=== PATIENT | male | born 1940 | race Caucasian/White ===

== ENCOUNTER 2017-12-04 08:11 | Day surgery (SDC) | payer MEDICARE, BC ==
[2017-12-04] MEDS ORDERED: Sodium Chloride 0.9% 1,000 ML IV SCH (09:00)
[2017-12-04] MEDS ORDERED: Propofol 200 MG/20 ML SDV ONE (09:21)
[2017-12-04] MEDS ORDERED: fentaNYL 100 MCG/2 ML SDV ONE (09:21)
[2017-12-04] MEDS ORDERED: Midazolam 1 MG/ML 2 ML SDV ONE (09:21)
--- NOTE | 2017-12-04 11:43 | OR ---
DATE OF PROCEDURE: 12/04/2017 PROCEDURE: Colonoscopy. FINDINGS: 1. Transverse colon polyp, approximately 5 mm, completely removed using cold biopsy forceps. 2. Very mild inflammation of ascending and rectum, biopsied using cold biopsy forceps. 3. Diverticulosis, mild. RISKS: Risks, benefits, alternatives, and limitations including, but not limited to infection, bleeding, and perforation were explained to the patient, who wished to proceed. PROCEDURE IN DETAIL: The patient was placed in supine position. The digital rectal exam was performed. The scope was introduced and advanced atraumatically to the ileocecal valve. The scope was brought back to the ascending, transverse, descending colon, and retroflexed. Very mild inflammation was noted and biopsied using cold biopsy forceps. The patient did have diverticulosis; however, there was only 3-4 tics noted. No abnormalities and retroflexed. The patient tolerated the procedure well. Obey Spencer MD /[id number]
== END 2017-12-04 11:45 | disposition home or self-care (01) ==
LOC: JP.SDS 08:11
PROVIDERS: ATTEND Surgery
DX: K52.9 Noninfective gastroenteritis and colitis, unspecified (principal); D12.3 Benign neoplasm of transverse colon; K57.30 Diverticulosis of large intestine without perforation or abscess without bleeding; I10 Essential (primary) hypertension; I48.2 Chronic atrial fibrillation; E78.5 Hyperlipidemia, unspecified; M10.9 Gout, unspecified; Z88.0 Allergy status to penicillin; Z88.8 Allergy status to other drugs, medicaments and biological substances
CPT/HCPCS: 45380; J2250; J2704; J3010; J7030; 88305

== ENCOUNTER 2018-07-16 09:36 | Emergency (ER) | payer MEDICARE, BC ==
[2018-07-16] MEDS ORDERED: HYDROmorphone 0.5 MG/0.5 ML Syringe IVPUSH ONE (10:10)
[2018-07-16] MEDS ORDERED: Sodium Chloride 0.9% 10 ML Syringe FLUSH PRN (10:10)
[2018-07-16] MEDS ORDERED: Ketorolac 30 MG/ML SDV IVPUSH ONE (10:10)
--- NOTE | 2018-07-16 10:17 | EDM.PDOC ---
ED HPI GENERAL MEDICAL PROBLEM - General Chief Complaint: Abdominal Pain Stated Complaint: BACK/ABD PAIN Time Seen by Provider: 07/16/18 10:00 Source of Information: Reports: Patient History Limitations: Reports: No Limitations - History of Present Illness INITIAL COMMENTS - FREE TEXT/NARRATIVE: 77-year-old male with significant left flank pain radiating around to the left lower abdomen over the past 2 days. He has a history of colitis, feels he needs to have a bowel movement but can't. No increased urinary frequency. No dysuria. He went into the clinic to be evaluated and they sent him to the emergency room. Denies any fever or chills, no cough or shortness of breath. No previous similar symptoms. Onset: Sudden (Symptoms started rather suddenly 2 days ago) Associated Symptoms: Denies: Confusion, Chest Pain, Cough Left Abdominal Pain Score (Numeric/FACES): 10 - Related Data Allergies Allergy/AdvReac Type Severity Reaction Status Date / Time Penicillins Allergy Rash Verified 07/16/18 09:59 terbinafine [From Lamisil] Allergy Rash Verified 07/16/18 09:59 Home Meds: Home Meds Allopurinol [Zyloprim] 300 mg PO DAILY 12/02/17 [History] Apixaban [Eliquis] 5 mg PO BID 12/02/17 [History] Cholecalciferol (Vitamin D3) [Vitamin D3] 2,000 unit PO DAILY 12/02/17 [History] Clotrimazole/Betamethasone Dip [Lotrisone Cream] 1 applic TOP BID 12/02/17 [ History] Lisinopril 40 mg PO BID 12/02/17 [History] Metoprolol Succinate [Toprol XL] 25 mg PO DAILY 12/02/17 [History] Multivitamin with Minerals [Multiple Vitamin] 1 tab PO DAILY 12/02/17 [History] Rosuvastatin Calcium 5 mg PO DAILY 12/02/17 [History] amLODIPine Besylate [Amlodipine Besylate] 10 mg PO DAILY 12/02/17 [History] Budesonide [Entocort EC] 1 cap PO ASDIRECTED 07/16/18 [History] Past Medical History HEENT History: Reports: Cataract, Impaired Vision Cardiovascular History: Reports: Afib, CAD, High Cholesterol, Hypertension Respiratory History: Reports: None Genitourinary History: Reports: BPH Musculoskeletal History: Reports: Arthritis, Back Pain, Chronic, Gout, Osteoarthritis Neurological History: Reports: None Psychiatric History: Reports: None Endocrine/Metabolic History: Reports: None Hematologic History: Reports: Blood Transfusion(s) Immunologic History: Reports: None Oncologic (Cancer) History: Reports: Prostate Dermatologic History: Reports: Other (See Below) Other Dermatologic History: rash-groin - Infectious Disease History Infectious Disease History: Reports: Chicken Pox, Herpes, Measles, Mumps, Pertussis (Whooping Cough) - Past Surgical History Head Surgeries/Procedures: Reports: None HEENT Surgical History: Reports: Cataract Surgery GI Surgical History: Reports: Colonoscopy, Hernia, Abdominal Male Surgical History: Reports: Prostatectomy Neurological Surgical History: Reports: Spinal Fusion Musculoskeletal Surgical History: Reports: Knee Replacement Dermatological Surgical History: Reports: Other (See Below) Social & Family History - Family History Family Medical History: Noncontributory - Tobacco Use Smoking Status *Q: Never Smoker - Caffeine Use Caffeine Use: Reports: Coffee - Recreational Drug Use Recreational Drug Use: No ED ROS GENERAL - Review of Systems Review Of Systems: See Below Constitutional: Denies: Fever, Chills Respiratory: Denies: Shortness of Breath, Cough Cardiovascular: Denies: Chest Pain, Palpitations Endocrine: Denies: Fatigue GI/Abdominal: Reports: Abdominal Pain, Nausea. Denies: Constipation, Diarrhea, Vomiting : Reports: Flank Pain Musculoskeletal: Reports: Back Pain Skin: Reports: No Symptoms Neurological: Denies: Headache, Paresthesia Psychiatric: Reports: No Symptoms ED EXAM, GENERAL - Physical Exam Exam: See Below Exam Limited By: No Limitations General Appearance: Alert, Mild Distress (Looks fairly uncomfortable, having trouble sitting still) Head: Atraumatic Respiratory/Chest: No Respiratory Distress, Lungs Clear GI/Abdominal: Soft, Tender (Just some mild tenderness to palpation along the left anterior abdomen) Neurological: Alert, Oriented Psychiatric: Anxious Skin Exam: Warm, Dry Course - Vital Signs Last Recorded V/S: Last Vital Signs Temp 98.0 F 07/16/18 09:58 Pulse 111 H 07/16/18 09:58 Resp 16 07/16/18 09:58 BP 166/89 H 07/16/18 09:58 Pulse Ox 96 07/16/18 09:58 - Orders/Labs/Meds Orders: Active Orders 24 hr Category Date Time Status Saline Lock Insert [OM.PC] Routine Oth 07/16/18 10:10 Ordered Labs: Laboratory Tests 07/16/18 07/16/18 07/16/18 Range/Units 10:09 10:24 10:24 WBC 9.0 (4.5-11.0) K/uL RBC 5.48 (4.30-5.90) M/uL Hgb 15.9 H (12.0-15.0) g/dL Hct 49.5 (40.0-54.0) % MCV 90 (80-98) fL MCH 29 (27-31) pg MCHC 32 (32-36) % Plt Count 228 (150-400) K/uL Neut % (Auto) 63 (36-66) % Lymph % (Auto) 27 (24-44) % [place] % (Auto) 8 H (2-6) % Eos % (Auto) 1 L (2-4) % Baso % (Auto) 0 (0-1) % Sodium 140 (140-148) mmol/L Potassium 3.7 (3.6-5.2) mmol/L Chloride 103 (100-108) mmol/L Carbon Dioxide 24 (21-32) mmol/L Anion Gap 12.6 (5.0-14.0) mmol/L BUN 11 (7-18) mg/dL Creatinine 1.0 (0.8-1.3) mg/dL Est Cr Clr Drug Dosing 69.64 mL/min Estimated GFR (MDRD) > 60 (>60) Glucose 107 H (74-106) mg/dL Calcium 9.7 (8.5-10.1) mg/dL Urine Color Yellow Urine Appearance Clear Urine pH 6.0 (4.5-8.0) Ur Specific [place] 1.015 (1.008-1.030) Urine Protein Negative (NEGATIVE) mg/dL Urine Glucose (UA) Normal (NEGATIVE) mg/dL Urine Ketones Negative (NEGATIVE) mg/dL Urine Occult Blood Negative (NEGATIVE) Urine Nitrite Negative (NEGAITVE) Urine Bilirubin Negative (NEGATIVE) Urine Urobilinogen Normal (NORMAL) mg/dL Ur Leukocyte Esterase Negative (NEGATIVE) Urine RBC Not seen (0-5) Urine WBC Not seen (0-5) Ur Epithelial Cells Not seen Amorphous Sediment Rare Urine Bacteria Not seen Urine Mucus Not seen Meds: Medications Discontinued Medications Generic Name Dose Route Start Last Admin Trade Name Freq PRN Reason Stop Dose Admin Hydromorphone HCl 0.5 mg 07/16/18 10:10 07/16/18 10:22 Dilaudid IVPUSH 07/16/18 10:11 0.5 mg ONETIME ONE Administration Ketorolac Tromethamine 30 mg 07/16/18 10:10 07/16/18 10:21 Toradol IVPUSH 07/16/18 10:11 30 mg ONETIME ONE Administration Sodium Chloride 10 ml 07/16/18 10:10 07/16/18 10:21 Saline Flush FLUSH 10 ml ASDIRECTED PRN Administration Keep Vein Open - Re-Assessments/Exams Free Text/Narrative Re-Assessment/Exam: 07/16/18 10:20 A UA was obtained, CBC BMP and a saline lock started. Patient was given 30 mg of IV Toradol and 0.5 mg of IV Dilaudid with intention of getting a CT scan of the abdomen and pelvis without contrast. 07/16/18 11:26 Patient received good pain relief with medications. UA, CBC and BMP were basically normal. CT was done. 07/16/18 11:48 CT showed no acute findings. No evidence of constipation or colitis. With all of his normal labs, it was assumed that this is probably neuropathy or nerve irritation from his arthritis in his back. He'll be discharged with 20 hydrocodone to use for extra pain control and will recheck in 3-4 days if not improving satisfactorily. IMPRESSION: 1. No acute disease in abdomen or pelvis. 2. Cholelithiasis. 3. Prostate surgically absent. 4. Moderate low-density lesion right midkidney posteriorly is not a simple cyst and should be correlated to ultrasound to ensure it does not contain solid elements or suspicious features. 5. Nodularity left adrenal gland likely an adenoma. 6. Mild panniculitis in the mesentery. 7. No renal or ureteral calculi. 8. Multiple other findings as above. Departure - Departure Time of Disposition: 11:59 Disposition: Home, Self-Care 01 Condition: Fair Clinical Impression: Back pain Qualifiers: Back pain location: low back pain Chronicity: acute Back pain laterality: left Sciatica presence: without sciatica Qualified Code(s): M54.5 - Low back pain - Discharge Information Instructions: Back Pain, Adult Referrals: Shiv Bowens MD [Primary Care Provider] - Forms: ED Department Discharge Care Plan Goals: Continue your current medications, and occasional dose of ibuprofen should be okay. Use stronger pain medications as needed over the next 4 days and recheck if not improving satisfactorily by early next week. Return to the emergency room if worsening despite medication. - My Orders Last 24 Hours: My Active Orders 07/16/18 10:10 Saline Lock Insert [OM.PC] Routine - Assessment/Plan Last 24 Hours: My Active Orders 07/16/18 10:10 Saline Lock Insert [OM.PC] Routine
--- NOTE | 2018-07-16 11:29 | CRLCT ---
INDICATION: Left flank pain. TECHNIQUE: CT of abdomen and pelvis performed without oral IV contrast. FINDINGS: Mild elevation eventration right hemidiaphragm. Moderate degenerative arthritis spine and hips. Plate and screw fixation mid and lower lumbar spine from L3-L5 bilaterally. Multilevel degenerative disc disease lumbar spine. Moderate irregular vascular calcifications. Marked diffuse fatty infiltration of liver with focal areas of fatty sparing in the liver. Mild atelectasis and fibrotic change in the lung bases. Small nodule right midlung likely benign. Bone donor graft site right iliac bone. Small stones in the gallbladder. Small amounts of fluid and soft tissue stranding both kidneys. Oval-shaped 1.8 cm nodule in the left adrenal gland may be an adrenal adenoma. Fluid and stranding about both kidneys. Small cyst left kidney. Moderate-sized low-density lesion right midkidney posteriorly is not a simple cyst and can be correlated to ultrasound. Additional smaller cyst in the right lower lateral kidney. Small calcifications along the surface of the right kidney. Mild hazy increased density in the abdominal pelvic mesentery. Small bilateral inguinal hernias containing only fat. Small lymph nodes in the abdominal retroperitoneum. The urinary bladder is not well-distended likely accounting for its wall being somewhat prominent. Colonic diverticulosis without evidence of diverticulitis. Appendix is normal. The prostate is absent. Mesh material just beneath the mid and lower anterior abdominal wall consistent with prior hernia repair. Remainder negative. IMPRESSION: 1. No acute disease in abdomen or pelvis. 2. Cholelithiasis. 3. Prostate surgically absent. 4. Moderate low-density lesion right midkidney posteriorly is not a simple cyst and should be correlated to ultrasound to ensure it does not contain solid elements or suspicious features. 5. Nodularity left adrenal gland likely an adenoma. 6. Mild panniculitis in the mesentery. 7. No renal or ureteral calculi. 8. Multiple other findings as above. Please note that all CT scans at this facility use dose modulation, iterative reconstruction, and/or weight-based dosing when appropriate to reduce radiation dose to as low as reasonably achievable. Dictated by Shivam Dickinson MD @ Jul 16 2018 11:27AM Signed by Dr. Shivam Dickinson @ Jul 16 2018 11:28AM
== END 2018-07-16 12:14 | disposition home or self-care (01) ==
LOC: JP.ED 09:36
DX: M54.5 Low back pain (principal); I48.91 Unspecified atrial fibrillation; E78.00 Pure hypercholesterolemia, unspecified; I10 Essential (primary) hypertension; Z88.0 Allergy status to penicillin; Z88.8 Allergy status to other drugs, medicaments and biological substances; Z79.899 Other long term (current) drug therapy; Z79.01 Long term (current) use of anticoagulants
CPT/HCPCS: 36415; 74176; 80048; 81001; 85025; 96374; 96375; 99284; J1170; J1885; 99283

== ENCOUNTER 2019-05-02 16:45 | Emergency (ER) | payer MEDICARE, BC ==
[2019-05-02] MEDS ORDERED: Aspirin 81 MG Tab.Chew ONE (16:48)
[2019-05-02] MEDS ORDERED: Aspirin 81 MG Tab.Chew PO ONE (16:53)
--- NOTE | 2019-05-02 17:15 | EDM.PDOC ---
ED HPI GENERAL MEDICAL PROBLEM - General Chief Complaint: Chest Pain Stated Complaint: CHEST PAINS Time Seen by Provider: 05/02/19 17:14 Source of Information: Reports: Patient History Limitations: Reports: No Limitations - History of Present Illness INITIAL COMMENTS - FREE TEXT/NARRATIVE: 78 years old male patient presented with chief complaint of retrosternal chest pain, tightness and squeezing since noontime today. Also pleuritic chest pain, hurts when he takes a deep breath. Constant, feeling like his heart is racing. No radiation of pain to the shoulder or jaw or back or neck but felt a little bit in his left temporal area. Left-sided headache. Denies any nausea or vomiting. Denies any diaphoresis. No leg pain or swelling. History of chronic A. fib. Has been having productive cough for the last 6 weeks. Treated with Z- Hugo that seems to help a little but did not completely resolved. Still coughing. Denies any shortness breath. Denies any fever. Denies any abdominal pain diarrhea or constipation. Denies any urinary symptom. - Related Data Allergies Allergy/AdvReac Type Severity Reaction Status Date / Time Penicillins Allergy Rash Verified 05/02/19 16:54 terbinafine [From Lamisil] Allergy Rash Verified 05/02/19 16:54 Home Meds: Home Meds Allopurinol [Zyloprim] 300 mg PO DAILY 12/02/17 [History] Apixaban [Eliquis] 5 mg PO BID 12/02/17 [History] Cholecalciferol (Vitamin D3) [Vitamin D3] 2,000 unit PO DAILY 12/02/17 [History] Lisinopril 40 mg PO BID 12/02/17 [History] Metoprolol Succinate [Toprol XL] 25 mg PO DAILY 12/02/17 [History] Multivitamin with Minerals [Multiple Vitamin] 1 tab PO DAILY 12/02/17 [History] Rosuvastatin Calcium 5 mg PO DAILY 12/02/17 [History] amLODIPine Besylate [Amlodipine Besylate] 10 mg PO DAILY 12/02/17 [History] Benzonatate 1 cap PO TID PRN 05/02/19 [History] Losartan [Cozaar] 1 tab PO DAILY 05/02/19 [History] Past Medical History HEENT History: Reports: Cataract, Impaired Vision Cardiovascular History: Reports: Afib, CAD, High Cholesterol, Hypertension Respiratory History: Reports: None Genitourinary History: Reports: BPH Musculoskeletal History: Reports: Arthritis, Back Pain, Chronic, Gout, Osteoarthritis Neurological History: Reports: None Psychiatric History: Reports: None Endocrine/Metabolic History: Reports: None Hematologic History: Reports: Blood Transfusion(s) Immunologic History: Reports: None Oncologic (Cancer) History: Reports: Prostate Dermatologic History: Reports: Other (See Below) Other Dermatologic History: rash-groin - Infectious Disease History Infectious Disease History: Reports: Chicken Pox, Herpes, Measles, Mumps, Pertussis (Whooping Cough) - Past Surgical History Head Surgeries/Procedures: Reports: None HEENT Surgical History: Reports: Cataract Surgery GI Surgical History: Reports: Colonoscopy, Hernia, Abdominal Male Surgical History: Reports: Prostatectomy Neurological Surgical History: Reports: Spinal Fusion Musculoskeletal Surgical History: Reports: Knee Replacement Dermatological Surgical History: Reports: Other (See Below) Social & Family History - Family History Family Medical History: Noncontributory - Tobacco Use Smoking Status *Q: Never Smoker - Caffeine Use Caffeine Use: Reports: Coffee ED ROS GENERAL - Review of Systems Review Of Systems: Comprehensive ROS is negative, except as noted in HPI. ED EXAM, GENERAL - Physical Exam Exam: See Below Exam Limited By: No Limitations General Appearance: Alert, WD/WN, No Apparent Distress Nose: Normal Inspection, Normal Mucosa, No Blood Head: Atraumatic, Normocephalic Neck: Normal Inspection, Supple, Non-Tender, Full Range of Motion Respiratory/Chest: No Respiratory Distress, Lungs Clear, Normal Breath Sounds, No Accessory Muscle Use, Chest Non-Tender Cardiovascular: Normal Peripheral Pulses, No Edema, No Gallop, No JVD, No Murmur , No Rub, Tachycardia, Irregularly Irregular GI/Abdominal: Normal Bowel Sounds, Soft, Non-Tender, No Organomegaly, No Distention, No Abnormal Bruit, No Mass Extremities: Normal Inspection, Normal Range of Motion, Non-Tender, No Pedal Edema, Normal Capillary Refill, Pedal Edema Neurological: Alert, Oriented, CN II-XII Intact, Normal Cognition, Normal Gait, Normal Reflexes, No Motor/Sensory Deficits Skin Exam: Warm, Dry, Intact, Normal Color, No Rash Course - Vital Signs Last Recorded V/S: Last Vital Signs Temp 36.6 C 05/02/19 17:07 Pulse 80 05/02/19 18:20 Resp 11 L 05/02/19 18:20 BP 128/82 05/02/19 18:20 Pulse Ox 95 05/02/19 18:20 - Orders/Labs/Meds Orders: Active Orders 24 hr Category Date Time Status Cardiac Monitoring [RC] .As Directed Care 05/02/19 17:15 Active EKG Documentation Completion [RC] ASDIRECTED Care 05/02/19 17:16 Active Iopamidol [Isovue-370 (76%)] Med 05/02/19 18:45 Active 100 ml IV . DIRECTED Sodium Chloride 0.9% [Normal Saline] 100 ml Med 05/02/19 18:45 Active IV ASDIRECTED EKG 12 Lead [EK] Stat Ther 05/02/19 17:16 Ordered Medication Orders Sodium Chloride (Normal Saline) 100 mls @ 3 mls/sec IV ASDIRECTED YOBANI Last Admin: 05/02/19 19:01 Dose: 3 mls/sec Iopamidol (Isovue-370 (76%)) 100 ml IV . DIRECTED YOBANI Last Admin: 05/02/19 19:01 Dose: 100 ml Labs: Laboratory Tests 05/02/19 05/02/19 05/02/19 Range/Units 17:20 17:20 17:20 WBC 9.7 (4.5-11.0) K/uL RBC 5.12 (4.30-5.90) M/uL Hgb 15.1 H (12.0-15.0) g/dL Hct 46.7 (40.0-54.0) % MCV 91 (80-98) fL MCH 30 (27-31) pg MCHC 32 (32-36) % Plt Count 202 (150-400) K/uL Neut % (Auto) 57 (36-66) % Lymph % (Auto) 28 (24-44) % [place] % (Auto) 13 H (2-6) % Eos % (Auto) 2 (2-4) % Baso % (Auto) 0 (0-1) % PT 11.0 (9.5-12.0) sec INR 1.02 (0.80-1.20) Sodium 140 (140-148) mmol/L Potassium 3.6 (3.6-5.2) mmol/L Chloride 104 (100-108) mmol/L Carbon Dioxide 24 (21-32) mmol/L Anion Gap 12.5 (5.0-14.0) mmol/L BUN 13 (7-18) mg/dL Creatinine 1.1 (0.8-1.3) mg/dL Est Cr Clr Drug Dosing 62.27 mL/min Estimated GFR (MDRD) > 60 (>60) Glucose 113 H (74-106) mg/dL Lactic Acid (0.4-2.0) mmol/L Calcium 8.5 (8.5-10.1) mg/dL Magnesium 1.8 (1.8-2.4) mg/dL Troponin I < 0.017 (0.000-0.056) ng/mL NT-Pro-B Natriuret Pep 332 (5-450) pg/mL 05/02/19 Range/Units 17:20 WBC (4.5-11.0) K/uL RBC (4.30-5.90) M/uL Hgb (12.0-15.0) g/dL Hct (40.0-54.0) % MCV (80-98) fL MCH (27-31) pg MCHC (32-36) % Plt Count (150-400) K/uL Neut % (Auto) (36-66) % Lymph % (Auto) (24-44) % [place] % (Auto) (2-6) % Eos % (Auto) (2-4) % Baso % (Auto) (0-1) % PT (9.5-12.0) sec INR (0.80-1.20) Sodium (140-148) mmol/L Potassium (3.6-5.2) mmol/L Chloride (100-108) mmol/L Carbon Dioxide (21-32) mmol/L Anion Gap (5.0-14.0) mmol/L BUN (7-18) mg/dL Creatinine (0.8-1.3) mg/dL Est Cr Clr Drug Dosing mL/min Estimated GFR (MDRD) (>60) Glucose (74-106) mg/dL Lactic Acid 1.2 (0.4-2.0) mmol/L Calcium (8.5-10.1) mg/dL Magnesium (1.8-2.4) mg/dL Troponin I (0.000-0.056) ng/mL NT-Pro-B Natriuret Pep (5-450) pg/mL Meds: Medications Generic Name Dose Route Start Last Admin Trade Name Justina PRN Reason Stop Dose Admin Sodium Chloride 100 mls @ 3 mls/sec 05/02/19 18:45 05/02/19 19:01 Normal Saline IV 3 mls/sec ASDIRECTED YOBANI Administration Iopamidol 100 ml 05/02/19 18:45 05/02/19 19:01 Isovue-370 (76%) IV 100 ml . DIRECTED YOBANI Administration Discontinued Medications Generic Name Dose Route Start Last Admin Trade Name Justina PRN Reason Stop Dose Admin Aspirin 324 mg 05/02/19 16:53 05/02/19 17:02 Aspirin PO 05/02/19 16:54 324 mg ONETIME ONE Administration Diltiazem HCl 20 mg 05/02/19 17:20 05/02/19 17:36 Diltiazem IVPUSH 05/02/19 17:21 20 mg ONETIME ONE Administration - Re-Assessments/Exams Free Text/Narrative Re-Assessment/Exam: 05/02/19 19:00 Patient was seen and examined shortly after arrival. Stable. On personnel monitor. Given 324 of aspirin. EKG shows A. fib with RVR. Given 20 mg of IV Cardizem. . Heart slowed down. But still in A. fib. Heart rate down in the 80s. EKG, lab and imaging reviewed the patient. No sign of acute ischemia. Troponin is negative. CT A of the chest shows no acute abnormalities. Also negative for PE. Patient's symptoms markedly improved almost resolved however still have some mild pleuritic chest pain only when he takes a deep breath otherwise symptom resolved. Denies any shortness breath. Denies any headache or visual changes. Denies any other symptom. I did recommended for him and advised him to be admitted for cardiac rule out and further management. Patient refused admission. Patient was advised that he will be leaving AGAINST MEDICAL ADVICE was risk of his decision including but not limited to worsening condition, MRI, arrhythmia, stroke and even . Still insisting on leaving AGAINST MEDICAL ADVICE. He signed the form and left. Patient was advised to follow-up tomorrow with his primary doctor for reevaluation. Was also advised to come back right away for any worsening symptom. Patient agrees . Patient signed AGAINST MEDICAL ADVICE and left. 05/02/19 19:59 Departure - Departure Time of Disposition: 20:04 Disposition: Against Medical Advice 07 Condition: Fair Clinical Impression: Chest pain, Atrial fibrillation with RVR Instructions: Atrial Fibrillation, Angina Pectoris, [id number] Referrals: PCP,None [Primary Care Provider] - Forms: ED Department Discharge Additional Instructions: Rest, hydration, Follow-up with your primary doctor tomorrow for reevaluation Come back to the ER for any concern or any worsening symptom - My Orders Last 24 Hours: My Active Orders 05/02/19 17:15 Cardiac Monitoring [RC] .As Directed 05/02/19 17:16 EKG Documentation Completion [RC] ASDIRECTED EKG 12 Lead [EK] Stat 05/02/19 18:45 Iopamidol [Isovue-370 (76%)] 100 ml IV . DIRECTED Sodium Chloride 0.9% [Normal Saline] 100 ml IV ASDIRECTED - Assessment/Plan Last 24 Hours: My Active Orders 05/02/19 17:15 Cardiac Monitoring [RC] .As Directed 05/02/19 17:16 EKG Documentation Completion [RC] ASDIRECTED EKG 12 Lead [EK] Stat 05/02/19 18:45 Iopamidol [Isovue-370 (76%)] 100 ml IV . DIRECTED Sodium Chloride 0.9% [Normal Saline] 100 ml IV ASDIRECTED Plan: Rest, hydration, Follow-up with your primary doctor tomorrow for reevaluation Come back to the ER for any concern or any worsening symptom Left against medical advise
[2019-05-02] MEDS ORDERED: Diltiazem 25 MG/5 ML SDV IVPUSH ONE (17:20)
--- NOTE | 2019-05-02 17:50 | CRLCR ---
INDICATION: Chest pain TECHNIQUE: Chest radiograph 1 view COMPARISON: None FINDINGS: Mediastinum: The mediastinum is normal in appearance. The heart silhouette is normal in size and morphology. Lung: There is an asymmetric density in the right mid lung zone measuring 1.5 cm. No sign of pleural effusion seen. No pneumothorax is identified. Bone and Soft tissue: Unremarkable for age. IMPRESSION: 1. There is an asymmetric density in the right mid lung zone measuring 1.5 cm. This may represent a summation artifact or a lesion with the overlying ribs. Comparison with any prior outside imaging is recommended. If these cannot be obtained, follow up chest radiograph in 3 months is warranted to document stability. Dictated by Panda Crane MD @ 05/02/2019 5:48:05 PM Dictated by: Panda Crane MD @ 05/02/2019 17:48:11 (Electronically Signed)
[2019-05-02] MEDS ORDERED: Sodium Chloride 0.9% 100 ML IV SCH (18:45)
[2019-05-02] MEDS ORDERED: Iopamidol 755 Mg/ML 100 ML Bottle IV SCH (18:45)
--- NOTE | 2019-05-02 19:37 | CRLCT ---
INDICATION: Chest pain TECHNIQUE: CT chest with i.v. contrast using pulmonary angiographic technique. Coronal and sagittal reformats were obtained. CONTRAST: 77 mL Isovue 370 COMPARISON: None FINDINGS: Cardiovascular: The pulmonary arteries are unremarkable in enhancement with no evidence of acute pulmonary embolism. Mild Atherosclerotic calcifications are noted in the coronary arteries. Calcifications of the aortic valve are noted. The heart has an unremarkable appearance and size. Mediastinum: No mass or adenopathy seen. Lung: Both lungs are unremarkable in appearance. Pleura and pericardium: No sign of pleural effusion seen. No significant pericardial effusion is present. Chest wall and axilla: No mass or adenopathy seen. Bone: Unremarkable for age. Upper abdomen: Moderate fatty infiltration of the visualized liver is noted. IMPRESSION: 1. No CT evidence of acute pulmonary emboli seen. Dictated by Panda Crane MD @ 05/02/2019 7:34:54 PM Please note that all CT scans at this facility use dose modulation, iterative reconstruction, and/or weight-based dosing when appropriate to reduce radiation dose to as low as reasonably achievable. Dictated by: Panda Crane MD @ 05/02/2019 19:34:59 (Electronically Signed)
== END 2019-05-02 20:40 | disposition left against medical advice (07) ==
LOC: JP.ED 16:45
DX: R07.2 Precordial pain (principal); I48.20 Chronic atrial fibrillation, unspecified; I25.10 Atherosclerotic heart disease of native coronary artery without angina pectoris; E78.00 Pure hypercholesterolemia, unspecified; I10 Essential (primary) hypertension; M10.9 Gout, unspecified; Z88.0 Allergy status to penicillin; Z88.8 Allergy status to other drugs, medicaments and biological substances; Z79.01 Long term (current) use of anticoagulants; Z79.899 Other long term (current) drug therapy; Z85.46 Personal history of malignant neoplasm of prostate
CPT/HCPCS: 36415; 71045; 71275; 80048; 83605; 83735; 83880; 84484; 85025; 85610; 93005; 93010; 96374; 99285; A9270; J3490; J7050; Q9967